=== PATIENT | female | born 1980 | race Caucasian/White ===

== ENCOUNTER 2019-08-10 08:29 | Emergency (ER) | payer SELFPAY ==
--- NOTE | 2019-08-10 08:30 | W.ED.BACK ---
HPI - Back Pain/Injury General: Chief Complaint: Back Pain/Injury Stated Complaint: Back Pain Time Seen by Provider: 08/10/19 08:30 Source: patient Mode of arrival: ambulatory Limitations: no limitations History of Present Illness: HPI Narrative: Patient is a 39-year-old female who presents to ED today with complaints of lower back pain; patient states she has a history of intermittent back aches but nothing that has been this bad; patient states she lifted a box yesterday and immediately felt pain in her lower back; she has no radiation into her lower extremities; she denies numbness, tingling, loss of sensation, weakness; there is no saddle anesthesia or bowel or bladder dysfunction; patient does not have a primary care doctor and has never had any formal evaluation for her lower back pains MD elicited complaint: back pain Pertinent past history: prior back pain Onset (ago): day(s) (yesterday) Timing: constant Quality: burning Location: lumbar spine Radiation: none Exacerbating factors: movement, walking and coughing/sneezing Relieving factors: immobilization Context: while lifting Associated symptoms: Reports no associated symptoms; Deny dysuria or urinary urgency Treatments prior to arrival: NSAIDS Work related injury: No Review of Systems Card: Denies: chest pain, palpitations, lightheadedness, shortness of breath on exertion, shortness of breath when lying down or leg pain with exertion : Denies: flank pain, difficulty urinating, painful urination, urinary frequency, urinary urgency or urinary hesitancy Musc: Reports: back pain; Denies: neck pain, extremity pain, joint pain or muscle weakness PFSH ED PFSH: Statuses (acute, chronic, etc) shown below reflect problem list status as previously entered and may not be historically accurate Social History Smoking and tobacco status: former smoker Physical Exam Const: COMMON NORMALS: no apparent distress, oriented x3, alert and well nourished NUTRITIONAL APPEARANCE: obese morbidly obese : COMMON NORMALS: Yes no CVA tenderness BLADDER/KIDNEY EXAM: Yes no CVA tenderness Back/Pelvis: COMMON NORMALS: no CVA tenderness and straight leg raise negative bilaterally THORACIC SPINE/UPPER BACK: Yes normal to inspection and Yes thoracic ROM normal LUMBAR SPINE/LOWER BACK: Yes pain with ROM, Yes lumbar spinal tenderness, No paraspinal muscle tenderness and No paraspinal muscle spasm SACROILIAC JOINTS: Yes SI joints normal Neuro: COMMON NORMALS: oriented x3, no focal motor deficits and no sensory deficits noted SENSORIUM/ORIENTATION: Yes alert MOTOR EXAM: strength 5/5 throughout and muscle tone normal throughout Skin: COMMON NORMALS: no rashes or lesions noted GENERAL SKIN EXAM: no rashes or lesions noted Course Vital Signs: Vital signs: Vital Signs Temperature 97.8 F 08/10/19 08:33 Pulse Rate 83 08/10/19 08:33 Respiratory Rate 20 H 08/10/19 08:33 Blood Pressure 166/125 08/10/19 08:33 Pulse Oximetry 100 08/10/19 08:33 Discharge Plan Discharge Patient Disposition: Home, Self-Care Clinical Impression: Strain of lumbar region Qualifiers: Encounter type: initial encounter Qualified Code(s): S39.012A - Strain of muscle, fascia and tendon of lower back, initial encounter Condition: Stable Prescriptions: New cyclobenzaprine 10 mg tablet 10 mg PO TID Qty: 14 RF: 0 prednisone 10 mg tablet 60 mg PO DAILY 5 Days Qty: 30 RF: 0 diclofenac sodium 50 mg tablet,delayed release (DR/EC) 50 mg PO Q12H PRN (Reason: pain) Qty: 20 RF: 0 Discharge Orders: Discharge Order (Routine); Ordered 08/10/19 Ordered By: Allison Samuels Discharge Diet: Usual diet Discharge Activity: Increase activity as tolerated Coding Level of Care Code ED Echocardiography Radiology Technologist for Ilana Kong Exam Problem Focused
[2019-08-10 08:33] VITALS: BP 166/125; PULSE 83; RESP 20; TEMP 36.6; O2SAT 100; BMI 39.3
[2019-08-10] MEDS: ketorolac 60 mg/2 mL INJ IM (08:48)
[2019-08-10] MEDS: dexamethasone 10 mg/mL INJ 8 MG IM (08:48)
[2019-08-10] MEDS: orphenadrine 30 mg/mL Inj 2 mL 60 MG IM (08:48)
[2019-08-10 09:13] VITALS: BP 131/77; PULSE 70; O2SAT 97
== END 2019-08-10 09:13 | disposition home or self-care (01) ==
PROVIDERS: Emergency Provider Physician Assistant
DX: S39.012A Strain of muscle, fascia and tendon of lower back, initial encounter (principal); X50.0XXA Overexertion from strenuous movement or load, initial encounter; Z87.891 Personal history of nicotine dependence
CPT/HCPCS: 96372; 99281; J1100; J1885; J2360